=== PATIENT | male | born 1990 | race Caucasian/White ===

== ENCOUNTER 2023-08-11 08:05 | Emergency (ER) | payer OTHER ==
[2023-08-11 08:26] VITALS: TEMP 97.6
--- NOTE | 2023-08-11 08:49 | ERPHSYRPT ---
- History of Present Illness Time Seen by Provider: 08/11/23 08:13 Source: patient, family Exam Limitations: no limitations Patient Subjective Stated Complaint: C/O a constant dull headache to the back of his head and into his neck. Patient reports that he had 2 seperate episodes yesterday where the left side of his face went numb that lasted approx 5 minutes each time. Denies numbness this am. Triage Nursing Assessment: Patient ambulated back to ER. He is alert and oriented. He denies any falls, head injuries, or trauma. NO SOB. MILTON WNL. Skin tone normal. Physician History: Patient is here with headache and neck pain. Patient states that yesterday he was at [facility] around 1 PM. States that he had an episode of left-sided facial numbness. Bilateral hand numbness, dizziness. He states that this never happe cathryn before.During this episode he had no falls or trauma. His dad states that his face looked like it was "twitching". However there was no facial paralysis. It was bilateral. Patient has a dull headache in the back of his neck.Today he has no numbness, weakness, tingling, dizziness. He is completely asymptomatic. Patient states that last night he was sitting on his couch and he had another ep isode of this. He states that his told him to come in today. Allergies/Adverse Reactions: No Known Drug Allergies Allergy (Verified 08/11/23 08:15) Home Medications: No Reportable Medications [No Reported Medications] 08/11/23 [History] Hx Tetanus, Diphtheria Vaccination/Date Given: Yes Hx Influenza Vaccination/Date Given: No Hx Pneumococcal Vaccination/Date Given: No Immunizations Up to Date: Yes Travel Risk - International Travel Have you traveled outside of the country in past 3 weeks: No - Coronavirus Screening Are you exhibiting any of the following symptoms?: Yes Symptoms: Headaches/Body Aches/Fatigue Close contact with a COVID-19 positive Pt in past 14-21 Days: No - Vaccine Status Have you recieved a Covid-19 vaccination: No - Past Medical History Pertinent Past Medical History: No Neurological History: No Pertinent History ENT History: No Pertinent History Cardiac History: No Pertinent History Respiratory History: No Pertinent History Endocrine Medical History: No Pertinent History Musculoskeletal History: Other GI Medical History: No Pertinent History History: No Pertinent History Psycho-Social History: No Pertinent History Male Reproductive Disorders: No Pertinent History Other Medical History: low back pain,sciatica - Past Surgical History Past Surgical History: Yes Neuro Surgical History: No Pertinent History Cardiac: No Pertinent History Respiratory: No Pertinent History Gastrointestinal: No Pertinent History Genitourinary: No Pertinent History Musculoskeletal: No Pertinent History Male Surgical History: No Pertinent History Other Surgical History: TUBES IN EARS - Social History Smoking Status: Never smoker How long have you smoked: 4 Exposure to second hand smoke: No Drug Use: none Patient Lives Alone: No - Nursing Vital Signs Nursing Vital Signs: Initial Vital Signs Temperature 97.6 F 08/11/23 08:16 Pulse Rate 64 08/11/23 08:16 Respiratory Rate 10 L 08/11/23 08:16 Blood Pressure 151/81 08/11/23 08:16 O2 Sat by Pulse Oximetry 97 08/11/23 08:16 Pain Scale Pain Intensity 3 - Physical Exam SpO2: 96 Comments: 08/11/23 08:47 Physical Exam Vitals signsand nursing notereviewed. Constitutional: Appearance: She is well-developed. HENT: Head: Normocephalicand atraumatic. Eyes: Conjunctiva/sclera: Conjunctivae normal. Neck: Musculoskeletal: Normal range of motion. Trachea: No tracheal deviation. Cardiovascular: Rate and Rhythm: Normal rate. Pulmonary: Effort: Pulmonary effort is normal. Norespiratory distress. Abdominal: Palpations: Abdomen is soft. Musculoskeletal: General: No deformity. Skin: General: Skin is warmand dry. Neurological: Mental Status: She is alertand oriented to person, place, and time. Psychiatric: Behavior: Behaviornormal. Motor: There is no pronator drift of out-stretched arms. Muscle bulk and tone are normal. Strength is full bilaterally. Reflexes: Reflexes are 2+ and symmetric at the biceps, triceps, knees, and ankles. Plantar responses are flexor. Sensory: Light touch sense are intact in bilateral upper and lower extremities. There is no sign of neglect. Coordination: Rapid alternating movements are intact. There is no dysmetria on [id number] and [id number]. There are no abnormal or extraneous movements. Romberg is absent. Gait/Stance: Posture is normal. Gait is steady with normal steps, base, arm swing, and turning. Heel and toe walking are normal. Tandem gait is normal. Review of Systems Constitutional: Negative forfever. HENT: Negative forcongestion. Respiratory: Negative forshortness of breath. Cardiovascular: Negative forchest pain. Gastrointestinal: Negative forabdominal pain. Genitourinary: Negative fordysuria. Musculoskeletal: Negative forback pain. Skin: Negative forrash. Neurological: Headache, dizziness Psychiatric/Behavioral: Negative forbehavioral problems. All other systems reviewed and are negative. - Course Nursing assessment & vital signs reviewed: Yes EKG Interpreted by Me: Sinus Rhythm Ordered Tests: Active Orders 24 hr Category Date Time Status Archeologist Classical STAT Care 08/11/23 08:38 Active EKG-ER Only STAT Care 08/11/23 08:36 Active IV Insertion STAT Care 08/11/23 08:36 Active NPO (ED) STAT Care 08/11/23 08:36 Active CHEST 1 VIEW (PORTABLE) Stat Exams 08/11/23 08:[address] ANGIOGRAPHY NECK [CT] Stat Exams 08/11/23 08:39 Completed CTA HEAD W AND/OR WO CONTRAST [CT] Stat Exams 08/11/23 08:40 Completed HEAD WITHOUT CONTRAST [CT] Stat Exams 08/11/23 08:38 Completed CBC W DIFF Stat Lab 08/11/23 08:55 Completed CMP Stat Lab 08/11/23 08:55 Completed TROPONIN Q4H Lab 08/11/23 08:55 Completed TROPONIN Q4H Lab 08/11/23 12:45 Ordered UA W/RFX UR CULTURE Stat Lab 08/11/23 08:38 Ordered EKG STAT RT 08/11/23 09:29 Active Lab/Rad Data: Laboratory Result Diagrams 08/11/23 08:55 08/11/23 08:55 Laboratory Results 08/11/23 08/11/23 08/11/23 Range/Units 08:55 08:55 08:55 WBC 4.7 (4.0-10.5) x10^3/uL RBC 4.88 (4.1-5.6) x10^6/uL Hgb 13.6 (12.5-18.0) g/dL Hct 42.8 (42-50) % MCV 87.7 (78-100) fL MCH 27.9 (26-32) pg MCHC 31.8 L (32-36) g/dL RDW 12.9 (11.5-14.0) % Plt Count 194 (150-450) x10^3/uL MPV 9.7 (7.5-11.0) fL Gran % 63.4 (36.0-66.0) % Immature Gran % (Auto) 0.2 (0.00-0.4) % Nucleat RBC Rel Count 0.0 (0.00-0.1) % Eos # (Auto) 0.12 (0-0.5) x10^3/uL Immature Gran # (Auto) 0.01 (0.00-0.03) x10^3u/L Absolute Lymphs (auto) 1.07 (1.0-4.6) x10^3/uL Absolute Monos (auto) 0.50 (0.0-1.3) x10^3/uL Absolute Nucleated RBC 0.00 (0.00-0.01) x10^3u/L Lymphocytes % 22.7 L (24.0-44.0) % Monocytes % 10.6 (0.0-12.0) % Eosinophils % 2.5 (0.00-5.0) % Basophils % 0.6 (0.0-0.4) % Absolute Granulocytes 2.99 (1.4-6.9) x10^3/uL Basophils # 0.03 (0-0.4) x10^3/uL Sodium 138 (137-145) mmol/L Potassium 3.8 (3.5-5.1) mmol/L Chloride 106 (98-107) mmol/L Carbon Dioxide 26 (22-30) mmol/L Anion Gap 10.2 (5-15) MEQ/L BUN 18 (9-20) mg/dL Creatinine 0.93 (0.66-1.25) mg/dL Estimated GFR 112.6 ML/MIN Glucose 108 H (74-106) mg/dL Calcium 9.1 (8.4-10.2) mg/dL Total Bilirubin 0.70 (0.2-1.3) mg/dL AST 31 (17-59) U/L ALT 28 (0-50) U/L Alkaline Phosphatase 54 (38-126) U/L Troponin I < 0.012 (0.000-0.034) ng/mL Serum Total Protein 7.2 (6.3-8.2) g/dL Albumin 4.1 (3.5-5.0) g/dL - Progress Progress: improved Progress Note: 08/11/23 08:48 Differential ecchymosis includes stroke, vertebral artery dissection, cardiac event, arrhythmia, head bleed, new onset tumor. Today, we will obtain basic labs, CTA head and neck, EKG, chest x-ray, troponin. His neurological exam is totally normal at this point in time. Continued close ER monitoring. 08/11/23 09:44 EKG shows sinus rhythm, rate of 56, MS interval 168, QRS 93, QTc is 420, no STEMI 08/11/23 10:10 Patient's labs, cardiac markers, EKG are unremarkable. Head CTA head and neck did not demonstrate any obvious abnormality, dissection, head bleed, tumor. Patient is been asymptomatic throughout stay. Of note I was told by nursing staff that wet they went to start an IV patient did experience some vasovagal symptoms. Certainly patient may be is more susceptible to vasovagal events and this could have been what happened yesterday. However, no vital signs or evaluation yesterday therefore, difficult to determine. Patient should follow- up with his PCP for a reexam in 24 to 48 hours. He will return here immediately should anything change. - Departure Departure Disposition: Home Clinical Impression: Headache, Dizzy spells Condition: Stable Critical Care Time: No Referrals: JEANINE MCCOY [Primary Care Provider] - Follow up/PCP as directed Instructions: Headache, Adult (DC) Additional Instructions: See your primary care doctor for reexam in 24 to 48 hours. Return here immediately or call 911 should anything change. Follow-up closely as advised.
[2023-08-11 09:04] LABS: Absolute Neutrophil Ct (ANC) 2.99 x10^3/uL (1.4-6.9); BASOPHIL % 0.6 % (0.0-0.4); Basophil (Absolute #) 0.03 x10^3/uL (0-0.4); Eosinophil % 2.5 % (0.00-5.0); Eosinophil (Absolute #) 0.12 x10^3/uL (0-0.5); Hematocrit 42.8 % (42-50); Hemoglobin 13.6 g/dL (12.5-18.0); IMMATURE GRAN # 0.01 x10^3u/L (0.00-0.03); IMMATURE GRAN % 0.2 % (0.00-0.4); Lymphocyte (Absolute #) 1.07 x10^3/uL (1.0-4.6); Lymphocytes % 22.7 % (24.0-44.0); Mean Cell Volume 87.7 fL (78-100); Mean Corpuscular Hemoglobin 27.9 pg (26-32); Mean Corpuscular Hgb Concent. 31.8 g/dL (32-36); Mean Platelet Volume 9.7 fL (7.5-11.0); Monocytes % 10.6 % (0.0-12.0); Neutrophil % 63.4 % (36.0-66.0); Platelet Count 194 x10^3/uL (150-450); Red Blood Count 4.88 x10^6/uL (4.1-5.6); Red Cell Distribution Width 12.9 % (11.5-14.0); White Blood Count 4.7 x10^3/uL (4.0-10.5)
--- NOTE | 2023-08-11 09:10 | XRAY ---
Indication: Dizziness. Stroke. Multiple contiguous axial images obtained through the head without contrast. Comparison: None Normal appearing brain parenchyma, ventricles, and bony calvarium. Visualized paranasal sinuses and mastoid air cells are clear. Impression: Normal CT head without contrast exam.
[2023-08-11 09:19] LABS: ALBUMIN 4.1 g/dL (3.5-5.0); ANION GAP 10.2 MEQ/L (5-15); BILIRUBIN,TOTAL 0.7 mg/dL (0.2-1.3); Calcium 9.1 mg/dL (8.4-10.2); Creatinine 1 0.93 mg/dL (0.66-1.25); EST GLOMERULAR FILTRATION RATE 112.6 ML/MIN; Potassium 3.8 mmol/L (3.5-5.1); Total Protein 7.2 g/dL (6.3-8.2)
--- NOTE | 2023-08-11 09:30 | XRAY ---
Indication: Near syncope. Comparison: March 14, 2021 Portable apical lordotic chest is now clear. Heart not enlarged for AP portable technique. Bony thorax intact. Impression: Nonacute chest.
[2023-08-11 09:51] VITALS: O2SAT 96
--- NOTE | 2023-08-11 09:52 | XRAY ---
Indication: Neck pain. Vertebrae artery dissection. Conventional contrast enhanced CTA neck performed using 80 cc Isovue 370 contrast. 2-D sagittal and coronal reformatted images obtained. Additional 3-D reformatted images obtained using separate workstation. Comparison: None Visualized aortic arch is normal in course and caliber without aneurysm/dissection. Anatomic variant for bovine arch. The common carotid, carotid bulb, internal carotid, and external carotid arteries are normal in CTA appearance bilaterally. Vertebral arteries are bilaterally symmetric with right slightly larger in caliber. No focal stricture, obstruction, or AV malformation. Visualized soft tissues demonstrates a few subcentimeter cervical lymph nodes, none pathologically enlarged. Parotid and semitubular glands are bilaterally symmetric. Thyroid gland homogeneous. Supra and infraglottic airway widely patent. Osseous structures intact. Lung apices clear. Impression: Normal CTA neck with contrast exam.
--- NOTE | 2023-08-11 09:54 | XRAY ---
Indication: Dizziness. Stroke. Conventional contrast enhanced CTA head performed using 80 cc Isovue 370 contrast. 2-D sagittal and coronal reformatted images obtained. Additional 3-D reformatted images obtained using separate workstation. Comparison: None Distal internal carotid arteries are bilaterally symmetric without critical stenosis, obstruction, or AV malformation. Normal carotid terminus with normal branching A1 and M1 segments bilaterally. More distal anterior cerebral and middle cerebral arteries are normal in CTA appearance bilaterally. Posterior circulation demonstrates normal CTA appearance to the basilar, left/right posterior cerebral, and left/right superior cerebellar arteries. Venous sinuses/drainage unremarkable. Brain parenchyma is negative for abnormal enhancing intra or extra-axial mass. Impression: Normal CTA head with contrast exam.
[2023-08-11 10:19] VITALS: BP 131/79; PULSE 53; RESP 3
== END 2023-08-11 10:27 | disposition home or self-care (01) ==
LOC: ED 08:05
DX: R51.9 Headache, unspecified (principal); R42 Dizziness and giddiness; R20.2 Paresthesia of skin; Z28.310 Unvaccinated for COVID-19
CPT/HCPCS: 36000; 36415; 70450; 70496; 70498; 71045; 80053; 84484; 85025; 93005; 93041; 99284